=== PATIENT | female | born 1975 | race Caucasian/White ===

== ENCOUNTER → 2024-03-04 08:12 | Outpatient (REF) | payer OTHER, SELFPAY | LOC: WDC 08:12 | PROVIDERS: ATTENDING PHYSICIAN Family Medicine | DX: Z12.31 Encounter for screening mammogram for malignant neoplasm of breast (principal) | CPT/HCPCS: 77063; 77067 ==

== ENCOUNTER → 2025-03-05 08:16 | Outpatient (REF) | payer OTHER, SELFPAY | LOC: WDC 08:16 | PROVIDERS: ATTENDING PHYSICIAN Family Medicine | DX: Z12.31 Encounter for screening mammogram for malignant neoplasm of breast (principal) | CPT/HCPCS: 77063; 77067 ==

== ENCOUNTER 2025-04-23 17:45 | Inpatient (IN) | payer OTHER, SELFPAY ==
[2025-04-23 12:52] VITALS: BP 161/111
[2025-04-23 13:14] LABS: Hematocrit 47.0 % (37.0-47.0); Hemoglobin 15.4 g/dL (12.0-16.0); Mean Corp Hgb Conc. 32.8 g/dL (33.0-37.0); Mean Corpuscular Volume 85.0 fL (81.0-99.0); Nucleated Red Blood Cells % 0 %; Platelet Count 267 10^3/uL (130-400); Red Cell Dist. Width 13.2 % (11.5-14.5); Urine Character Bloody (Clear)
[2025-04-23 13:28] LABS: ALT (SGPT) 27 U/L (0-35); AST (SGOT) 20 U/L (14-36); Albumin 4.3 g/dl (3.5-5.0); Alkaline Phosphatase 73 U/L (38-126); Blood Urea Nitrogen 19 mg/dl (7-17); Calcium 9.0 mg/dl (8.4-10.2); Carbon Dioxide 32 mmol/L (22-30); Chloride 101 mmol/L (98-107); Glucose 126 mg/dl (70-99); Potassium 4.3 mmol/L (3.5-5.1); Sodium 139 mmol/L (135-145); Total Protein 8.3 g/dl (6.3-8.2); eGFR > 60.00
[2025-04-23 13:30] LABS: Urine Red Blood Cell >100 /HPF (0-2); Urine Squamous Cell 0-2 /LPF (Few); Urine White Cell >100 /HPF (0-5)
[2025-04-23 13:36] LABS: Urine Urothelial Cell 0-2 /LPF (FEW)
--- NOTE | 2025-04-23 15:03 | ED.GENMED ---
History of Present Illness
General
Chief Complaint: Urinary Symptoms
Time Seen by Provider: 04/23/25 14:11
History of Present Illness
History of Present Illness:
50-year-old female with history of polycystic kidney disease status post heterotopic renal transplant performed in 2022 at [facility] presents to the emergency department for evaluation of nonresolving UTI symptoms. Has had dysuria,
hematuria, and flank pain for the past week or more, was initially started on nitrofurantoin by her primary infectious disease specialist through [facility], subsequent urine culture collected on April 18 grew Klebsiella pneumoniae
with intermediate sensitivity pattern to nitrofurantoin, she was then switched to cefpodoxime, she has had 4 doses thus far without any change in her symptoms. Denies fevers or chills. Reports significant discomfort in the suprapubic space.
Past History
Past History
ED Past Medical History: Asthma, HTN and Other ( kidney stones, anemia, polycystic kidneys)
ED Past Surgical History: and Gynecological
Social History
Tobacco: Non-smoker
Alcohol: None
Drug: None
Personal:
Living: with family
Employment: Employed
Review of Systems
Review of Systems
Allergies reviewed?: Yes
All Other Systems: ROS reviewed and negative except as documented in HPI and ROS
Phy Exam
Physical Exam
Physical Exam:
GEN: Well appearing, NAD, WDWN
HEENT: Oral mucosa moist, no scleral icterus
Cardiac: Regular rate
Lung: No respiratory distress, no tachypnea
MSK: No gross deformity or injuries
Skin: Good color, no pallor or jaundice, no rashes
Neuro: AO x3, moves all extremities freely
Psych: Calm, cooperative
Course
Orders/Labs/Results
Orders:
Orders
04/23/25 13:06
Complete Blood Count/With Diff Urgent
Comprehensive Metabolic Panel Urgent
Urinalysis Reflex To Culture Urgent
Date Specimen was Collected: 04/23/25
Time Specimen was Collected: 12:59
Urine Microscopic Reflex Cult Urgent
Urine Culture Urgent
AMBROSIO Source: U
Specimen Description:
Date Specimen was Collected: 04/23/25
Time Specimen was Collected: 12:59
04/23/25 14:42
CT Abd/pel Without Iv Or Oral Urgent
Comment:
Reason For Exam: flank pain, hematuria
04/23/25 16:26
CefTRIAXone [Rocephin] 1,000 mg IV NOW STA
Abnormal Lab Results
04/23/25
13:06
RBC 5.53 H 10^6/uL
(4.20-5.40)
MCHC 32.8 L g/dL
(33.0-37.0)
Absolute Monos (auto) 1.2 H 10^3/uL
(0.1-0.6)
Monocytes % 11.5 H %
(1.7-9.3)
Carbon Dioxide 32 H mmol/L
(22-30)
BUN 19 H mg/dl
(7-17)
Glucose 126 H mg/dl
(70-99)
Total Protein 8.3 H g/dl
(6.3-8.2)
Ur Occult Blood Reflex 4+ A
(Negative)
Leukocyte Esterase Rfl 3+ A
(Negative)
Urine RBC >100 A /HPF
(0-2)
Urine WBC (Reflex) >100 A /HPF
(0-5)
Urine Albumin (Reflex) 4+ A
(Neg - Trace)
04/23/25 13:06
04/23/25 13:06
Vital Signs
Initial and Last Documented VS:
Initial Vital Signs
Temp Pulse Resp BP Pulse Ox
98.6 F 83 18 161/111 97
04/23/25 12:52 04/23/25 12:52 04/23/25 12:52 04/23/25 12:52 04/23/25 12:52
Last Documented Vital Signs
Temp Pulse Resp BP Pulse Ox
98.6 F 85 18 136/87 95
04/23/25 12:52 04/23/25 15:10 04/23/25 15:10 04/23/25 15:10 04/23/25 15:10
MDM/Problems Addressed
MDM/Problems Addressed:
Given patient's failure of outpatient therapy despite adequate outpatient antibiotics will treat with IV antibiotics and admit given history of renal transplant and immunocompromise, imaging shows no evidence for etiology to her symptoms
*Pulse Oximetry
SaO2: 97
Oxygen Mode of Delivery: Room air
Patient hypoxic: no
*Critical Care Note
Total Time (30-74mins, 75-104mins- exclusive of procedures): Not Applicable
ED Attending Note
-
Portions of this chart may have been created with voice recognition software.� Occasional wrong word or��sound alike� substitutions may have occurred due to the inherent limitations of voice recognition software.
Discharge Plan
Departure
Patient Disposition: Admit
Date of Disposition: 04/23/25
Time of Disposition: 16:27
Admit to: Med/Surg
Presentation/result/management discussed w/ accepting MD/DO: Hospitalist
Discharge Problem:
Acute UTI, Failure of outpatient treatment
Prescriptions:
No Action
amlodipine 5 MG tablet
5 mg PO BID
multivitamin with folic acid [Tab-A-Linda] 1 TABLET tablet
2 tab PO DAILY
Patient Comments:
GUMMY
cholecalciferol (vitamin D3) 1,000 UNITS tablet
1,000 units PO DAILY
acetaminophen 325 MG tablet
650 mg PO Q4HPRN PRN (Reason: mild pain/RAMIREZ/temp> 100.4F) 0RF
hydralazine 25 MG tablet
50 mg PO QID
sodium bicarbonate 650 MG tablet
650 mg PO TID
bupropion HCl 100 mg Tablet Sustained-Release 12 Hr
100 mg PO BID
calcium carbonate [Tums 500] 500 mg calcium (1,250 mg) Tablet,Chewable
500 mg PO BID
Gentle Iron 28 mg iron-60mg -400 mcg-8 mcg Capsule
1 cap PO BID
torsemide 10 mg Tablet
10 mg PO DAILY
Referrals:
Verna Murrieta MD [Family Provider, Family Practice]
Interventions
Interventions:
*Risk Screen - Suicide Last Done: 04/23/25 12:52
*General Assessment Last Done: 04/23/25 12:52
*Neglect/Abuse Screening Last Done: 04/23/25 12:52
*ED COVID-19 Vaccine History Last Done: 04/23/25 12:52
*ED Influenza Vaccine History Last Done: 04/23/25 12:52
ED-Female Genitourinary Assessment Last Done: 04/23/25 15:10
Discharge Date and Time
Print Language: TUNISIAN
[2025-04-23 15:10] VITALS: BP 136/87
[2025-04-23] MEDS: ROCEPHIN 1000 MG IV (16:34)
--- NOTE | 2025-04-23 16:36 | HPS.HSE ---
Family Physician
-
Family Physician: Verna Murrieta
Chief Complaint
-
dysuria and hematuria
History of Present Illness
Patient is a 50-year-old female with past medical history significant for hypertension, hyperlipidemia, chronic kidney disease V, polycystic kidney disease, anemia and depression who presented to [facility] ED for evaluation of continued urinary symptoms.
Patient reports last Sunday she started with dysuria, frequency and hematuria and was started on PO antibiotics Sunday morning, she reports getting a call from ID to change antibiotic on Sunday for sensitivity results. Patient started cefpodoxime
on Sunday evening and states that symptoms have continued and worsened slightly since then. Denies any fever, chills, nausea, vomiting or diarrhea.
Medical History
Past Medical History
Past Medical History: Reports Other
Additional Past Medical History:
hypertension
hyperlipidemia
chronic kidney disease V
polycystic kidney disease
anemia
depression
Past Surgical History: Reports Other
Additional Past Surgical History:
x3
[place] teeth extraction
D+C (Dr. Guerra) 10/27/20
[facility]
Parathyroidectomy, subtotal 11/22/2021
L ureteral stent with subsequent removal 02/2022
Ventral hernia, umbilical hernia repair December 29, 202212/2022
Left breast biopsy - benign 03/2023
Living related kidney transplant at [facility] 05/15/2023
Mohs procedure right facial squamous cell
Social History
Tobacco: Non-smoker
Alcohol: None
Drug: None
Living: With Family
Employment: Employed
Family History
Family History: Other (Father: PKD)
Allergies / Home Medications
Allergies reflects when Allergies were last updated in [employer].
Home Medications with original date entered in [employer]
Allergy/Medication List:
Allergies
Allergy/AdvReac Type Severity Reaction Status Date / Time
methyldopa Allergy swollen Verified 04/23/25 12:59
lips/face
NSAIDS (Non-Steroidal Allergy due to Verified 04/23/25 12:59
Anti-Inflamma kidney
disease
pollen extracts Allergy nasal Verified 04/23/25 12:59
congestion
rabbit dander Allergy SWOLLEN Verified 04/23/25 12:59
LIPS/FACE
ibuprofen (Ibuprofen) AdvReac due to Verified 04/23/25 12:59
kidney
disease
Home Medications
cholecalciferol (vitamin D3) 25 mcg (1,000 unit) tablet 1,000 units PO DAILY Supplement 06/30/20
bupropion HCl 100 mg tablet,12 hr sustained-release 100 mg PO BID 02/14/22
amlodipine 10 mg tablet 10 mg PO DAILY 04/23/25
calcitriol 0.25 mcg capsule 0.25 mcg PO DAILY 04/23/25
carvedilol 6.25 mg tablet 6.25 mg PO BID 04/23/25
pravastatin 20 mg tablet 20 mg PO HS 04/23/25
prednisone 5 mg tablet 5 mg PO DAILY 04/23/25
tacrolimus 1 mg tablet,extended release 24 hr (Envarsus XR) 2 mg PO DAILY 04/23/25
Review of Systems
-
History Source: Patient
Constitutional: Denies Fever or Chills
EENT: Denies Sore Throat
Respiratory: Denies Cough, Hemoptysis or Trouble Breathing
Cardiac: Denies Chest Pain, Diaphoresis, Palpitations or Syncope
Abdomen/GI: Denies Abdominal Pain, Nausea, Vomiting or Diarrhea
: Reports Dysuria, Frequency and Bleeding
Skin: Denies Rash
Neurological: Denies Dizzy, Weakness or Numbness
Physical Exam
Vital Signs
Vital Signs
Temp Pulse Resp BP Pulse Ox
98.6 F 85 18 136/87 95
04/23/25 12:52 04/23/25 15:10 04/23/25 15:10 04/23/25 15:10 04/23/25 15:10
Physical Exam
General: Well Developed, Well Nourished, No Apparent Distress, Comfortable, Conversant and Obese
HEENT: NormoCephalic, Moist mucous membranes, Nose Appears Normal and Ears Appear Normal
Respiratory: Clear and Non Labored Respirations
Cardiac: S1/S2 and Regular Rhythm
GI: Soft, Non Tender, Non Distended and Normal Bowel Sounds
Genito-urinary: Deferred by me
Musculoskeletal: No Clubbing, No Cyanosis, No Edema and Normal Gait & Station
Skin: Warm and IV/Catheter Site
Neuro: Awake and AO x 3
Hematologic/Lymphatic: No Lymphadenopathy
Psych: Calm and Intact Judgment/Insight
Laboratory Results
-
04/23/25 13:06
04/23/25 13:06
Laboratory Results
Total Bilirubin 1.2 mg/dl (0.2-1.3) 04/23/25 13:06
AST 20 U/L (14-36) 04/23/25 13:06
ALT 27 U/L (0-35) 04/23/25 13:06
Alkaline Phosphatase 73 U/L (38-126) 04/23/25 13:06
Data Reviewed
-
CT Scan: Report Reviewed by me (Abd/Pl: 1. Findings consistent with autosomal dominant polycystic kidney disease, with innumerable renal cysts on each side. Multiple hyperattenuating lesions bilaterally, some of which have increased in size compared
to prior CT dated 10/28/2021. These most likely represent slowly growing hemorrhagi)
Lab Data: Labs Reviewed by me
Impression/Plan
-
IMPRESSION/PLAN:
#dysuria, frequency and hematuria likely 2/2 UTI that failed out patient antibiotics
Abd/Pel CT: 1. Findings consistent with autosomal dominant polycystic kidney disease, with innumerable renal cysts on each side. Multiple hyperattenuating lesions bilaterally, some of which have increased
in size compared to prior CT dated 10/28/2021. These most likely represent slowly growing hemorrhagic cysts. Continued imaging surveillance is suggested to exclude renal neoplasm.
2. Diffuse fatty infiltration of the liver.
3. Small fat-containing ventral hernia without evidence of incarceration.
- Admit to med/surg
- Consult ID
- IV Ceftriaxone
- supportive care
#hypertension
- continue amlodipine and carvedilol
#hyperlipidemia
- continue pravastatin
#hyperparathyroidism
- continue calcitriol
#chronic kidney disease V
#polycystic kidney disease
s/p living related donor 2022
follows with [place] transplant team
- continue prednisone and tacrolimus
#depression
- continue bupropion
Code status: full code
DVT prophylaxis: SCDs
--- NOTE | 2025-04-23 16:57 | W.PN.UPDATE ---
Addendum entered and electronically signed by Galindo Burris MD 04/23/25 19:33:
Correction:
<del>Male</del> complicated UTI of RTP patient
- on immunosuppressants for RTP with Nl RFTs
- UCX POS for Klebsiella pneumoniae with intermediate sensitivity pattern to nitrofurantoin, she was then switched to cefpodoxime s/p 4 doses thus far without any change in her symptoms.
- IV CFTX in places of cefpodoxime while obtaining OP UCx sensitivity report
- UCx sent at
- f/u improvement in dysuria, hematuria, and flank pain
- check Tacrolimus level
- ID consult
Original Note:
Update Note
Progress Note Update
This note serves as an addendum to the H&P by winery cellar hand MARIO�
Licha Astorga
HPI�
50F non smoker HX PCK dz s/p heterotopic RTP ( 2022 at [facility]) seen at ER:
- for evaluation of nonresolving UTI symptoms such as dysuria, hematuria, and flank pain for the past week or more
- was initially started on nitrofurantoin by her primary ID specialist through [facility]
- subsequent UCx collected on April 18 grew Klebsiella pneumoniae with intermediate sensitivity pattern to nitrofurantoin, she was then switched to cefpodoxime s/p 4 doses thus far without any change in her symptoms.
ROS:
Denies fevers or chills.
Significant discomfort in the suprapubic space.
PMHX: see above
Relevant VS
Temp Pulse Resp BP Pulse Ox
98.6 F 85 18 136/87 95
04/23/25 12:52 04/23/25 15:10 04/23/25 15:10 04/23/25 15:10 04/23/25 15:10
PE
Gen: Well appearing
HEENT:
Lungs: CTA
Cor: RRR S1 S2
Abdomen:�soft non tender abdo
: no b/l CVA tenderness
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
MS: no edema
Psych:
Relevant Data
04/23/25
13:06
WBC 10.0
Hgb 15.4
Plt Count 267
BUN 19 H
Creatinine 0.8
eGFR > 60.00
Urine Color Red
Urine Clarity Bloody
Urine RBC >100 A
Urine WBC (Reflex) >100 A
NO PRIOR hospitalist admission:
ASSESSMENT & PLAN
Pending Rx reconciliation
Male complicated UTI of RTP patient
- on immunosuppressants for RTP with Nl RFTs
- UCX POS for Klebsiella pneumoniae with intermediate sensitivity pattern to nitrofurantoin, she was then switched to cefpodoxime s/p 4 doses thus far without any change in her symptoms.
- IV CFTX in places of cefpodoxime while obtaining OP UCx sensitivity report
- UCx sent at
- f/u improvement in dysuria, hematuria, and flank pain
- check Tacrolimus level
- ID consult
PMHX
HX Asthma
Benign HTN
Kidney stones
Anemia
DVT Px: SC D
Code: Full code
IP MS
[2025-04-23 19:46] VITALS: BP 139/91; BMI 42.2
[2025-04-23 20:49] VITALS: BP 155/96
[2025-04-23] MEDS: PRAVACHOL 20 MG PO (20:52)
[2025-04-23] MEDS: COREG 6.25 MG PO (20:52)
[2025-04-23] MEDS: WELLBUTRIN REGULAR RELEASE 100 MG PO (20:53)
[2025-04-23] MEDS: TYLENOL 650 MG PO (20:58)
[2025-04-24 07:00] VITALS: BP 139/81
[2025-04-24] MEDS: ENVARSUS XR 2 MG PO (07:54)
[2025-04-24] MEDS: WELLBUTRIN REGULAR RELEASE 100 MG PO ×2 (07:55→19:52)
[2025-04-24] MEDS: ROCALTROL 0.25 MCG PO (07:55)
[2025-04-24] MEDS: COREG 6.25 MG PO ×2 (07:55→19:54)
[2025-04-24] MEDS: DELTASONE 5 MG PO (07:55)
[2025-04-24] MEDS: VITAMIN D3 (cholecalciferol) 25 MCG PO (07:56)
[2025-04-24] MEDS: NORVASC 10 MG PO (07:56)
[2025-04-24 08:19] LABS: Blood Urea Nitrogen 13 mg/dl (7-17); Calcium 8.7 mg/dl (8.4-10.2); Carbon Dioxide 32 mmol/L (22-30); Chloride 100 mmol/L (98-107); Estimated Creatinine Clearance 93 ml/min; Glucose 172 mg/dl (70-99); Potassium 4.1 mmol/L (3.5-5.1); Sodium 137 mmol/L (135-145); eGFR > 60.00
--- NOTE | 2025-04-24 09:30 | CON.ID ---
Consultation
-
Date/Time Consultation Requested: 04/23/2025 192
Date/Time Consultation Performed: 04/23/2025 0930
Requesting Provider: LIO Lutz
Performing Provider: Dr. Ese Kc
Reason for Consultation: UTI
Chief Complaint / Past History
Chief Complaint
Dysuria, frequency, gross hematuria
History of Present Illness
50-year-old female with history of polycystic kidney disease status post kidney transplant on May 15, 2023 on low-dose prednisone and on tacrolimus who presented to the hospital April 23 due to persistent urinary symptoms despite appropriate
antibiotic. Patient reports she started having recurrent UTIs since post renal transplant and she follows with infectious disease at [facility]. On SundayApril 17, she developed dysuria, urine frequency, and hematuria. She submitted urine
sample on SundayApril 18, then started empiric nitrofurantoin. She reports urine symptoms slightly better. On April 21, she received a call from her ID physician that urine culture grew Klebsiella pneumonia, intermediate resistant to
nitrofurantoin; organism susceptible to cefpodoxime and she was prescribed a 7-day course. While on cefpodoxime her urine symptoms got worse with increased urine frequency, bladder pressure, dysuria, and increase in gross hematuria. Also left
flank discomfort. No fevers or chills. She presented to the ER yesterday. CT abdomen/pelvis with unremarkable transplant kidney; numerous renal cysts bilateral [place] kidneys as previous, multiple hyperattenuating hemorrhagic cyst in both [place]
kidneys, some have progressed in size. UA here showed >100 RBC, >100 wbc, Ucx NO GROWTH. Today she reports the bladder pressure and dysuria as well as frequency have improved. However, the gross hematuria persists.
Past History
Additional Past Medical History:
Polycystic kidney disease
Living related kidney transplant at [facility] 05/15/2023
HTN
Dyslipidemia
Depression
Additional Past Surgical History:
x3
[place] teeth extraction
D+C (Dr. Guerra) 10/27/20
[facility]
Parathyroidectomy, subtotal 11/22/2021
Ventral hernia, umbilical hernia repair December 29, 202212/2022
Left breast biopsy - benign 03/2023
Mohs procedure right facial squamous cell
Allergy History:
methyldopa Allergy (Verified 04/23/25 12:59)
swollen lips/face
NSAIDS (Non-Steroidal Anti-Inflamma Allergy (Verified 04/23/25 12:59)
due to kidney disease
pollen extracts Allergy (Verified 04/23/25 12:59)
nasal congestion
rabbit dander Allergy (Verified 04/23/25 12:59)
SWOLLEN LIPS/FACE
ibuprofen (Ibuprofen) Adverse Reaction (Verified 04/23/25 12:59)
due to kidney disease
Medications Reviewed: Yes
Current Antibiotics:
ceftriaxone 1g IV q24h
Social History
Tobacco: Non-Smoker
Alcohol: None
Drug: None
Living: With Family
Family History
Family History: Not Pertinent
Review of Systems
Review of Systems
General: Negative Fever, Chills or Change in Appetite
HEENT: Negative Sinus Problems or Headache
Cardiovascular: Negative Chest Pain
Respiratory: Negative Dyspnea or Cough
Gasteroenterology: Negative Nausea or Vomiting
Genital / Urological: Dysuria and Hematuria
Endocrine: Negative Weakness
All systems: All other systems were reviewed and were negative
Vital Signs
Temp Pulse Resp BP Pulse Ox
99.7 F 83 16 139/89 94
04/23/25 19:46 04/23/25 19:46 04/23/25 19:46 04/24/25 07:55 04/23/25 19:46
Physical Exam
Physical Exam
Constitutional: No Acute Distress and Comfortable
Eyes: No Conjunctival Hemorrhage and Sclera Anicteric
Cardiovascular: Regular Rate and S1/S2
Pulmonary: Clear
Gastrointestinal: Soft, Non Tender and Non Distended
Genito-Urinary: Negative CVA Tenderness
Extremities: Negative Edema
Neurological: AO x 3
Lab / Diagnostic Study Results
04/23/25 13:06
04/24/25 07:18
Abs Immat Gran (auto) 0.0 10^3/uL (0-0.05) 04/23/25 13:06
Absolute Neuts (auto) 6.5 10^3/uL (1.4-6.5) 04/23/25 13:06
Absolute Lymphs (auto) 2.3 10^3/uL (1.2-3.4) 04/23/25 13:06
Absolute Monos (auto) 1.2 10^3/uL (0.1-0.6) H 04/23/25 13:06
Absolute Basos (auto) 0.0 10^3/uL (0-0.2) 04/23/25 13:06
Immature Gran % 0.3 % (0-0.5) 04/23/25 13:06
Neutrophils % 64.7 % (42.2-75.2) 04/23/25 13:06
Lymphocytes % 22.7 % (20.5-51.1) 04/23/25 13:06
Monocytes % 11.5 % (1.7-9.3) H 04/23/25 13:06
Eosinophils % 0.5 % (0-6) 04/23/25 13:06
Basophils % 0.3 % (0-2) 04/23/25 13:06
Ur Squamous Epith Cells 0-2 /LPF (Few) 04/23/25 13:06
Microbiology Results
Micro:
04/23/25 13:06 Urine Culture - Final
Urine No Significant Growth
04/23/25 CT a/p: Findings consistent with autosomal dominant polycystic kidney disease, with innumerable renal cysts on each side. Multiple hyperattenuating lesions bilaterally, some of which have increased in size compared to prior CT dated
10/28/2021. These most likely represent slowly growing hemorrhagic cysts. Right lower quadrant transplant kidney is of normal appearance. No hydronephrosis or perinephric collection.
Assessment / Plan
# Klebsiella pneumoniae symptomatic UTI, despite outpatient appropriate cefpodoxime.
# Gross hematuria
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 [place] kidneys remains in situ.
- Review of 04/18/25 UA: packed with RBC, WBC. Ucx 10K-49K Kleb pneumoniae resistant to ampicillin, intermediate to nitrofurantoin; sensitive to amox/clav, cefuroxime, cefpodoxime, ceftriaxone, cefepime, levofloxacin, t/sulfa.
- I suspect ruptured hemorrhagic renal cyst contributing to patient's persistent/worsening urinary symptoms rather than 'failure' of outpatient abx.
Ucx here (on cefpodoxime) is negative.
- Can continue ceftriaxone for now.
At time of discharge, transition to po abx.
--- NOTE | 2025-04-24 11:04 | CM ---
Patient seen at bedside on . Patient states that she lives with 16 year old child, in process of divorce and 2 older children in college. Patient home is a 2 story home in [place]. Patient PCP is Dr. Mondragon and she has had a
transplant (kidney) at [place] in the past. patient stated that she uses the [facility] in [place]. Patient plan is home with follow up with appropriate physicians. Patient is a machinist first class. CM will continue to follow for discharge planning
needs.
Plan; home with VN vs home with no needs.
--- NOTE | 2025-04-24 11:11 | W.PN.HOSP.TC ---
Today's Communication/Plan
-
Cont Ceftriaxone
Assessment / Plan
Assessment / Plan
50yo F with ADPKD s/p renal transplant came with urinary pressure and hematuria. Recently started on Abx as per outpatient cultures. Since still felt significant pressure on L flank and had a lot of blood in urine - came to ED. Improved on IV Abx
A/P:
#UTI
#Immunocompromized patient
#ADPKD s/p renal transplant on Tacrolimus only
#Acute on chronic hematuria 2/2 hemorrhagic cysts
Cont Ceftriaxone as per previous Cx
ID consult
If hematuria improving - no need for nephrology as kidney function stable
COnt tacrolimus and Prednisone
CT without hydronephrosis, Cr WNL
#hyperattenuating rounded lesion is seen within the upper pole of the right kidney, measuring 3.8 cm
in 2021 - 3.0cm
patient was instructed to follow up this change with her existent transportation modeler as outpatient. She is agreeable and verbalized understandingof the insrcutions
#Essential HTN
#Anxiety d/o
cont hoem meds
DVT ppx SCDs 2/2 presence of hematuria and hemorrhagic cysts - patient encouraged to ambulate
Full code
I have spent at least 52min reviewing chart, test results, communicating with consultants and providing direct patient care
Anticipated Discharge: Within 24 hours
Subjective/Interval History
-
Date of Service: April 24, 2025
Objective Data
-
Labs:
Laboratory Results
04/24/25
07:18
Sodium 137
Potassium 4.1
Chloride 100
Carbon Dioxide 32 H
BUN 13
Creatinine 0.8
Glucose 172 H
Calcium 8.7
Vital Signs:
Vital Signs
Temp Pulse Resp BP Pulse Ox
99.3 F 83 18 139/89 95
04/24/25 07:00 04/24/25 07:00 04/24/25 07:00 04/24/25 07:55 04/24/25 07:00
I&O
04/23/25 04/24/25 04/25/25
06:59 06:59 06:59
Intake Total 240 / 240
Balance 240 / 240
Review of Systems
-
History Source: Patient
Genitourinary: Reports Dysuria, Frequency and Bleeding
Physical Exam
-
General: No Apparent Distress
HEENT: Normocephalic
Respiratory: Clear to Auscultation
Cardiac: Regular Rhythm
GI: Soft, Nontender and Nondistended
Genito-urinary: Costovertebral Angle Tend (L)
Skin: Warm
Neuro: Awake, Alert, Oriented and AO x 3
Psych: Calm
[2025-04-24 15:00] VITALS: BP 115/63
--- NOTE | 2025-04-24 15:07 | PN.CDI ---
Addendum entered and electronically signed by Augie Andrade MD 04/25/25 08:21:
morbid obesity
Original Note:
CDI
- -
CDI:
Physician Documentation Request
Admit Date: 04/23/25 17:45
Dear Doctor Lupe,
Clinical Indicators:
Height: 5 ft 2 in
Weight: 230 lbs 9 oz
BMI: 42.2
If possible, please provide an associated diagnosis related to the abnormal BMI(> or = to 40), such as:
Obesity
Morbid obesity
Other, please specify
Use of terms such as suspected, likely, concern for, or probable (associated with a specific diagnosis that is being evaluated, monitored, or treated as if it exists) are acceptable and can be coded in the inpatient setting, when documented at the
time of discharge.
Thank you,
ALEX Castañeda RN
CDI Specialist
available via tiger text
Please use your independent medical judgment in providing your response.
[2025-04-24] MEDS: STERILE WATER FOR INJECTION 10 ML IV (15:10)
[2025-04-24] MEDS: ROCEPHIN 1000 MG IV (15:10)
[2025-04-24] MEDS: PRAVACHOL 20 MG PO (19:52)
[2025-04-24] MEDS: TYLENOL 650 MG PO (19:54)
[2025-04-25 00:05] VITALS: BP 144/81
[2025-04-25 07:00] VITALS: BP 163/86
[2025-04-25] MEDS: ENVARSUS XR 2 MG PO (07:58)
[2025-04-25] MEDS: COREG 6.25 MG PO (07:59)
[2025-04-25] MEDS: WELLBUTRIN REGULAR RELEASE 100 MG PO (07:59)
[2025-04-25] MEDS: NORVASC 10 MG PO (08:00)
[2025-04-25] MEDS: VITAMIN D3 (cholecalciferol) 25 MCG PO (08:00)
[2025-04-25] MEDS: DELTASONE 5 MG PO (08:00)
[2025-04-25] MEDS: ROCALTROL 0.25 MCG PO (08:00)
--- NOTE | 2025-04-25 10:54 | W.PN.ID1 ---
Date of Service
Date of Service: April 25, 2025
Today's Communication
- After ceftriaxone dose today, can dc home and resume home cefpodoxime.
Assessment / Plan
# Klebsiella pneumoniae symptomatic UTI, despite outpatient appropriate cefpodoxime.
# Gross hematuria,
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 [place] kidneys remain in situ.
- Review of 04/18/25 UA: packed with RBC, WBC. Ucx 10K-49K Kleb pneumoniae resistant to ampicillin, intermediate to nitrofurantoin; sensitive to amox/clav, cefuroxime, cefpodoxime, ceftriaxone, cefepime, levofloxacin, t/sulfa.
- I suspect ruptured hemorrhagic renal cyst contributing to patient's persistent/worsening urinary symptoms rather than 'failure' of outpatient abx.
Ucx here (on cefpodoxime) is negative.
- pt clinically improving.
- After ceftriaxone dose today, can dc home and resume home cefpodoxime.
- Follow-up with ID at [facility].
Chief Complaint
-: UTI
Subjective / Review of Systems
Feeling much improved. Urine sxs resolving. Gross hematuria improving.
Vital Signs / Physical Exam
Vital Signs
Vital Signs
Temp Pulse Resp BP Pulse Ox
98.3 F 76 20 163/86 93
04/25/25 07:00 04/25/25 07:00 04/25/25 07:00 04/25/25 07:00 04/25/25 07:00
Physical Exam
Constitutional: No Acute Distress and Comfortable
Cardiovascular: Regular Rate and S1/S2
Pulmonary: Clear
Gastrointestinal: Soft, Non Tender and Non Distended
Genito-Urinary: Negative CVA Tenderness
Extremities: Negative Edema
Neurological: AO x 3
Objective Data
Lab Data
Lab Results
04/23/25 13:06
04/24/25 07:18
Estimated Creat Clear 93 ml/min 04/24/25 07:18
Total Bilirubin 1.2 mg/dl (0.2-1.3) 04/23/25 13:06
AST 20 U/L (14-36) 04/23/25 13:06
ALT 27 U/L (0-35) 04/23/25 13:06
Alkaline Phosphatase 73 U/L (38-126) 04/23/25 13:06
Most recent labs reviewed.
Micro Results:
04/23/25 13:06 Urine Culture - Final
Urine No Significant Growth
04/23/25 CT a/p: Findings consistent with autosomal dominant polycystic kidney disease, with innumerable renal cysts on each side. Multiple hyperattenuating lesions bilaterally, some of which have increased in size compared to prior CT dated
10/28/2021. These most likely represent slowly growing hemorrhagic cysts. Right lower quadrant transplant kidney is of normal appearance. No hydronephrosis or perinephric collection.
Care Review
Plan reviewed with: Physician (Dr. Cruz)
--- NOTE | 2025-04-25 13:51 | W.PN.HOSP.TC ---
Today's Communication/Plan
-
d/c AFTER last dose of ceftriaxone
Assessment / Plan
Assessment / Plan
50yo F with ADPKD s/p renal transplant came with urinary pressure and hematuria. Recently started on Abx as per outpatient cultures. Since still felt significant pressure on L flank and had a lot of blood in urine - came to ED. Improved on IV Abx
UTI--urine culture without growth--immunocompromised with renal transplant--cont tacrolimus and prednisone--on ceftriaxone--resume cefpodoxime
Acute on chronic hematuria due to hemorrhagic cysts
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
Essential HTN--meds as able
Anxiety d/o--cont home meds
DVT ppx SCDs due to presence of hematuria and hemorrhagic cysts - patient encouraged to ambulate
Full code
Anticipated Discharge: Today
Subjective/Interval History
-
Date of Service: April 25, 2025
pt feels better--ok for d/c after last ceftriaxone dose
Objective Data
-
Vital Signs:
max temp for 24 hours
04/24/25
15:00
Temp 99.4 F
Vital Signs
Temp Pulse Resp BP Pulse Ox
98.3 F 76 20 163/86 93
04/25/25 07:00 04/25/25 07:00 04/25/25 07:00 04/25/25 07:00 04/25/25 07:00
I&O
04/24/25 04/25/25 04/26/25
06:59 06:59 06:59
Intake Total 240 / 240 960 / 960
Balance 240 / 240 960 / 960
Review of Systems
-
All other systems: Reviewed and negative
Physical Exam
-
General: Well Developed, Well Nourished, No Apparent Distress and Morbidly Obese
HEENT: Normocephalic and Atraumatic; Negative Oxygen
Respiratory: Clear to Auscultation; Negative Wheezes or Rhonchi
Cardiac: Regular Rhythm and S1/S2; Negative Murmur
GI: Soft, Nontender, Nondistended and Normal Bowel Sounds
Musculoskeletal: No Clubbing, No Cyanosis and No Edema
Neuro: Awake
--- NOTE | 2025-04-25 14:02 | CM ---
Home today, no needs.
plan; Home today no needs.
[2025-04-25 15:00] VITALS: BP 115/70
[2025-04-25] MEDS: STERILE WATER FOR INJECTION 10 ML IV (15:49)
[2025-04-25] MEDS: ROCEPHIN 1000 MG IV (15:49)
[2025-04-25] MEDS: TYLENOL 650 MG PO (15:58)
--- NOTE | 2025-04-25 17:13 | W.DCSUMMARY ---
Discharge Summary
Discharge Data
Date of Admission: 04/23/25
Date of Discharge: 04/25/25
-
Pending Results: No
Hospital Course
Primary care physician : Verna Murrieta
Principal Discharge diagnosis : Symptomatic urinary tract infection with Klebsiella pneumoniae
Chronic Discharge diagnosis : Acute on chronic hematuria due to hemorrhagic cysts, kidney transplant with immunosuppression, essential hypertension, anxiety
Hospital Course : Patient was a 50-year-old female who presented for continued urinary complaints. Last Sunday, 1 week prior to admission; patient started with dysuria, frequency of hematuria and was started on oral antibiotics. On Sunday she
got a call from the infection doctor to change the antibiotic based on sensitivity results. Patient started cefpodoxime on the Sunday prior to admission and states that symptoms have continued and slightly worsened. Patient was admitted.
Problem #1: Symptomatic urinary tract infection with Klebsiella pneumoniae. Patient was admitted and seen in consultation by infectious disease. Patient submitted a urinary sample to ID on April 18 which grew Klebsiella pneumoniae. She
was started on empiric nitrofurantoin however; since the organism was resistant to that, she was changed to cefpodoxime and prescribed a 7-day course. When things did not improve, she she came back to the hospital and urinalysis here was positive
for greater than 100 red cells, greater than 100 white cells but her urine culture is no growth. She was placed on IV ceftriaxone and has been cleared for discharge by the infectious disease specialists after her last dose of IV ceftriaxone today.
She can then resume her cefpodoxime at discharge.
Problem #2: All other medical issues. These include Acute on chronic hematuria due to hemorrhagic cysts, kidney transplant with immunosuppression, essential hypertension, anxiety. These medical issues were stable during her hospitalization.
Medications were continued as able.
Patient is stable for discharge home at this time. If there are any questions regarding this dictation or her hospital stay, please do not hesitate to call. Our office number is [phone].
Discharge Plan
-
Patient Disposition: Home (Routine Discharge)
Discharge Diagnosis/Procedures: Klebsiella pneumoniae Urinary tract infection, renal transplant and immunocompromised, hemorrhagic renal cysts, essential hypertension, anxiety
Condition: Good
Diet: As tolerated
Activity: As tolerated
Driving Restrictions: As prior to admission
Bathing Restrictions: None
Referrals:
Verna Murrieta MD [Family Provider, [facility]] - in less than 1 week
Additional Discharge Medication Instructions: you should RESUME your cefpodoxime starting tomorrow.
Prescriptions:
Continued
cholecalciferol (vitamin D3) 1,000 UNITS tablet
1,000 units PO DAILY
bupropion HCl 100 mg Tablet Sustained-Release 12 Hr
100 mg PO BID
carvedilol 6.25 mg tablet
6.25 mg PO BID
prednisone 5 mg tablet
5 mg PO DAILY
amlodipine 10 mg tablet
10 mg PO DAILY
pravastatin 20 mg tablet
20 mg PO HS
calcitriol 0.25 mcg capsule
0.25 mcg PO DAILY
Envarsus XR 1 mg tablet extended release 24 hr
2 mg PO DAILY
Discharge Orders:
Discharge Patient (As Directed); Ordered 04/25/25
Ordered By: Rebecca Cruz
Discharge Date and Time
Discharge Date/Time: 04/25/25 17:03
Print Language: TONGAN
== END 2025-04-25 17:03 | disposition home or self-care (01) | DRG 690 ==
LOC: 4 WEST ACU 17:45
PROVIDERS: Emergency Medicine; Nurse Practitioner Family; ADMITTING PHYSICIAN Internal Medicine; ATTENDING PHYSICIAN Internal Medicine; CONSULT PHYSICIAN Internal Medicine Infectious Disease; EMERGENCY PHYSICIAN Emergency Medicine; FAMILY PHYSICIAN Family Medicine
DX: N39.0 Urinary tract infection, site not specified (principal); Z94.0 Kidney transplant status; D84.821 Immunodeficiency due to drugs; Z16.29 Resistance to other single specified antibiotic; Z68.41 Body mass index [BMI] 40.0-44.9, adult; B96.1 Klebsiella pneumoniae [K. pneumoniae] as the cause of diseases classified elsewhere; I10 Essential (primary) hypertension; F41.9 Anxiety disorder, unspecified; E78.5 Hyperlipidemia, unspecified; D64.9 Anemia, unspecified; F32.A Depression, unspecified; E21.3 Hyperparathyroidism, unspecified; K76.0 Fatty (change of) liver, not elsewhere classified; K43.9 Ventral hernia without obstruction or gangrene; J45.909 Unspecified asthma, uncomplicated; R31.0 Gross hematuria; Z79.60 Long term (current) use of unspecified immunomodulators and immunosuppressants; Z87.440 Personal history of urinary (tract) infections; E66.01 Morbid (severe) obesity due to excess calories
CPT/HCPCS: 74176; 80048; 80053; 80197; 81003; 81015; 85025; 87086; 99284